=== PATIENT | male | born 1965 | race Caucasian/White ===

== ENCOUNTER → 2022-11-11 | Outpatient (CLI) | payer BC ==
[~2022-11-11] MED LIST: HYDACE10B PO; NAPR500 PO; SILSUL1TC TOP
== END | disposition home or self-care (01) ==
LOC: LAB 08:34 → LAB SHORT 08:34 → PLD 08:34
DX: D22.5 Melanocytic nevi of trunk (principal)
CPT/HCPCS: 88305

== ENCOUNTER 2022-12-19 06:37 | Day surgery (SDC) | payer BC ==
[~2022-12-19] VITALS: Ht 177.8 cm; Wt 94.1 kg
[2022-12-19] MEDS ORDERED: OMEP20ER (07:00)
[2022-12-19] MEDS ORDERED: Vitamin C100 M1 (07:01)
[2022-12-19] MEDS ORDERED: Children's Che1 EAC1 (07:01)
== END 2022-12-19 08:59 | disposition home or self-care (01) ==
LOC: ORSCSDS 06:37
PROVIDERS: Surgery
PROC: 0DBL8ZX Excision of Transverse Colon, Via Natural or Artificial Opening Endoscopic, Diagnostic (ICD-10-PCS; principal; 2022-12-19 08:00)
PROC: 0DBN8ZX Excision of Sigmoid Colon, Via Natural or Artificial Opening Endoscopic, Diagnostic (ICD-10-PCS; principal; 2022-12-19 08:00)
DX: Z12.11 Encounter for screening for malignant neoplasm of colon (principal); D12.3 Benign neoplasm of transverse colon; D12.5 Benign neoplasm of sigmoid colon; K21.9 Gastro-esophageal reflux disease without esophagitis; H93.19 Tinnitus, unspecified ear; Z79.899 Other long term (current) drug therapy
CPT/HCPCS: 88305; J2704; J7120